=== PATIENT | male | born 1935 | race Caucasian/White ===

== ENCOUNTER 2021-11-10 06:52 | Observation (INO) | payer MEDICARE ==
[2021-11-10 08:05] LABS: Basophils % (A) 0 %; Eosinophils # (A) 0.1 k/uL (0-0.7); Eosinophils % (A) 1 %; HGB 15.8 gm/dL (13.0-17.5); Lymphocytes % (A) 18 %; MCH 29.9 pg (25.0-35.0); MCV 90.5 fL (80.0-100.0); Monocytes # (A) 0.8 k/uL (0-1.0); Monocytes % (A) 7 %; Neutrophils # (A) 7.7 k/uL (1.3-7.7); Neutrophils % (A) 71 %; Platelet Count 343 k/uL (150-450); RDW 13.3 % (11.5-15.5); WBC 10.9 k/uL (3.8-10.6)
[2021-11-10 08:11] LABS: Partial Thromboplastin Time 24.7 sec (22.0-30.0); Prothrombin Time 11.1 sec (9.0-12.0)
[2021-11-10 08:16] LABS: Albumin 4.3 g/dL (3.5-5.0); Calcium 9.1 mg/dL (8.4-10.2); Potassium 3.6 mmol/L (3.5-5.1); Total Bilirubin 1.1 mg/dL (0.2-1.3); Total Protein 7.5 g/dL (6.3-8.2)
--- NOTE | 2021-11-10 08:18 | XR ---
EXAMINATION TYPE: XR chest 2V DATE OF EXAM: 11/10/2021 COMPARISON: NONE HISTORY: Difficulty breathing TECHNIQUE: Frontal and lateral views of the chest are obtained. FINDINGS: The patient is rotated. There are overlying leads. Patchy basilar density noted. There is retrocardiac lucency consistent with hiatal hernia. Aorta is dense. Heart size is within normal limit s. Prominent lung volume may be indicative of underlying COPD. Thoracic spondylosis is present. There is a compression fracture midthoracic spine with loss of height of approximately 50-75%, additional fracture also shows loss of height of approximately 50%. No evident pneumothorax or pleural effusion. IMPRESSION: Probable hiatal hernia with partial intrathoracic stomach. There may be underlying basil ar atelectasis, difficult to exclude early pneumonia versus scarring. Compression fractures thoracic spine of indeterminate age.
[2021-11-10] MEDS ORDERED: IPRATROPIUM-ALBUTEROL 3 ML NEB INHALATION STA (09:00)
[2021-11-10] MEDS ORDERED: methylPREDNISolone SOD SUCCI 125 MG/2 ML VIAL IV STA (09:00)
[2021-11-10] MEDS ORDERED: cefTRIAXone IN SWFI 1,000 MG/10 ML SYRINGE IVP STA (09:00)
--- NOTE | 2021-11-10 09:03 | ED ---
SOB HPI - General Chief Complaint: Shortness of Breath Stated Complaint: Shortness of breath Time Seen by Provider: 11/10/21 07:05 Source: patient, EMS Mode of arrival: EMS Limitations: no limitations - History of Present Illness Initial Comments: Patient is an 86-year-old male past medical history of hypertension presents the emergency room with shortness of breath. States that it started yesterday. Patient cannot ambulate across a room or lay flat without being short of breath. Also reports to a productive cough with white sputum. Admits to dry throat and feeling weak overall. Denies previous history of cardiac or pulmonary disease. No previous issues with his breathing prior to yesterday. Admits to a murmur since he was young. Denies any current chest pain. No fevers. No sick contacts. No other alleviating, precipitating modifying factors - Related Data Home Medications Medication Instructions Recorded Confirmed Ascorbic Acid [Vitamin C] 1,000 mg PO DAILY@82911/10/21 11/10/21 Aspirin EC [Ecotrin Low Dose] 81 mg PO DAILY@82911/10/21 11/10/21 Cholecalciferol [Vitamin D3 (25 25 mcg PO DAILY@82911/10/21 11/10/21 Mcg = 1000 Iu)] Metoprolol Tartrate [Lopressor] 50 mg PO BID@0800,199911/10/21 11/10/21 Multivit-Min/FA/Lycopen/Lutein 1 tab PO DAILY@82911/10/21 11/10/21 [Centrum Silver Tablet] [place]-3 Fatty Acids/Fish Oil [Fish 1 cap PO DAILY@82911/10/21 11/10/21 Oil 1,000 mg Softgel] Vitamin E 400 unit PO DAILY@82911/10/21 11/10/21 hydroCHLOROthiazide [Hydrodiuril] 25 mg PO DAILY@1200 11/10/21 11/10/21 Allergies Allergy/AdvReac Type Severity Reaction Status Date / Time No Known Allergies Allergy Verified 11/10/21 08:35 Review of Systems ROS Statement: Those systems with pertinent positive or pertinent negative responses have been documented in the HPI. ROS Other: All systems not noted in ROS Statement are negative. Past Medical History Past Medical History: Hypertension History of Any Multi-Drug Resistant Organisms: None Reported Past Surgical History: No Surgical Hx Reported Past Psychological History: No Psychological Hx Reported Smoking Status: Former smoker Past Alcohol Use History: None Reported Past Drug Use History: None Reported - Past Family History Father Additional Family Medical History / Comment(s): at 92 from old age, no heart problems Mother Additional Family Medical History / Comment(s): from a car accident General Exam Limitations: no limitations General appearance: alert, in no apparent distress Head exam: Present: atraumatic, normocephalic, normal inspection Eye exam: Present: normal appearance, PERRL, EOMI. Absent: scleral icterus, conjunctival injection, periorbital swelling ENT exam: Present: normal exam, mucous membranes moist Neck exam: Present: normal inspection. Absent: tenderness, meningismus, lymphadenopathy Respiratory exam: Present: accessory muscle use, decreased breath sounds. Absent: respiratory distress, wheezes, rales, rhonchi, stridor Cardiovascular Exam: Present: normal rhythm, tachycardia, systolic murmur. Absent: diastolic murmur, rubs, gallop, clicks GI/Abdominal exam: Present: soft, normal bowel sounds. Absent: distended, tenderness, guarding, rebound, rigid Extremities exam: Present: normal inspection, full ROM, normal capillary refill. Absent: tenderness, pedal edema, joint swelling, calf tenderness Back exam: Present: normal inspection Neurological exam: Present: alert, oriented X3, CN II-XII intact Psychiatric exam: Present: normal affect, normal mood Skin exam: Present: warm, dry, intact, normal color. Absent: rash Course Vital Signs 11/10/21 11/10/21 11/10/21 06:55 09:19 09:32 Temperature 97.9 F Pulse Rate 97 100 95 Pulse Rate [ Pulse Oximetery ] Respiratory 22 16 Rate Blood Pressure 141/102 120/84 Blood Pressure [Right Arm Sitting] O2 Sat by Pulse 97 97 Oximetry 11/10/21 11/10/21 11/10/21 09:40 11:10 12:50 Temperature Pulse Rate 96 77 76 Pulse Rate [ Pulse Oximetery ] Respiratory 16 16 Rate Blood Pressure 128/88 123/73 Blood Pressure [Right Arm Sitting] O2 Sat by Pulse 96 95 Oximetry 11/10/21 14:00 Temperature 97.9 F Pulse Rate Pulse Rate [ 83 Pulse Oximetery ] Respiratory 17 Rate Blood Pressure Blood Pressure 153/82 [Right Arm Sitting] O2 Sat by Pulse 98 Oximetry Medical Decision Making - Medical Decision Making Vital patient is placed into room 6. A thorough history and physical exam was performed. Patient is tachycardic with a heart rate between 105 and 1:15. He has labored breathing with any type of movement in bed. He is placed on 2 L of oxygen. Laboratory studies are conducted and reviewed. Covid and influenza are negative. Chest x-rays performed which demonstrates a hiatal hernia, intrathoracic stomach and basilar atelectasis which is difficult to exclude early pneumonia. As the patient is having productive cough I did put him on Rocephin and azithromycin. Recommended admission for echo. Spoke with Dr. Mcallister who agreed to admit the patient - Lab Data Result diagrams: 11/11/21 06:54 11/11/21 06:54 Lab Results 11/10/21 11/10/21 11/10/21 Range/Units 07:33 07:33 07:33 WBC 10.9 H (3.8-10.6) k/uL RBC 5.30 (4.30-5.90) m/uL Hgb 15.8 (13.0-17.5) gm/dL Hct 48.0 (39.0-53.0) % MCV 90.5 (80.0-100.0) fL MCH 29.9 (25.0-35.0) pg MCHC 33.0 (31.0-37.0) g/dL RDW 13.3 (11.5-15.5) % Plt Count 343 (150-450) k/uL MPV 8.0 Neutrophils % 71 % Lymphocytes % 18 % Monocytes % 7 % Eosinophils % 1 % Basophils % 0 % Neutrophils # 7.7 (1.3-7.7) k/uL Lymphocytes # 2.0 (1.0-4.8) k/uL Monocytes # 0.8 (0-1.0) k/uL Eosinophils # 0.1 (0-0.7) k/uL Basophils # 0.0 (0-0.2) k/uL PT 11.1 (9.0-12.0) sec INR 1.0 (<1.2) APTT 24.7 (22.0-30.0) sec D-Dimer 0.53 (<0.60) mg/L FEU Sodium (137-145) mmol/L Potassium (3.5-5.1) mmol/L Chloride (98-107) mmol/L Carbon Dioxide (22-30) mmol/L Anion Gap mmol/L BUN (9-20) mg/dL Creatinine (0.66-1.25) mg/dL Est GFR (CKD-EPI)AfAm (>60 ml/min/1.73 sqM) Est GFR (CKD-EPI)NonAf (>60 ml/min/1.73 sqM) Glucose (74-99) mg/dL Plasma Lactic Acid Vipul (0.7-2.0) mmol/L Calcium (8.4-10.2) mg/dL Total Bilirubin (0.2-1.3) mg/dL AST (17-59) U/L ALT (4-49) U/L Alkaline Phosphatase (38-126) U/L Troponin I (0.000-0.034) ng/mL NT-Pro-B Natriuret Pep pg/mL Total Protein (6.3-8.2) g/dL Albumin (3.5-5.0) g/dL Coronavirus (PCR) Not Detected (Not Detectd) Influenza Type A RNA (Not Detectd) Influenza Type B (PCR) (Not Detectd) 11/10/21 11/10/21 11/10/21 Range/Units 07:33 07:33 07:33 WBC (3.8-10.6) k/uL RBC (4.30-5.90) m/uL Hgb (13.0-17.5) gm/dL Hct (39.0-53.0) % MCV (80.0-100.0) fL MCH (25.0-35.0) pg MCHC (31.0-37.0) g/dL RDW (11.5-15.5) % Plt Count (150-450) k/uL MPV Neutrophils % % Lymphocytes % % Monocytes % % Eosinophils % % Basophils % % Neutrophils # (1.3-7.7) k/uL Lymphocytes # (1.0-4.8) k/uL Monocytes # (0-1.0) k/uL Eosinophils # (0-0.7) k/uL Basophils # (0-0.2) k/uL PT (9.0-12.0) sec INR (<1.2) APTT (22.0-30.0) sec D-Dimer (<0.60) mg/L FEU Sodium 141 (137-145) mmol/L Potassium 3.6 (3.5-5.1) mmol/L Chloride 104 (98-107) mmol/L Carbon Dioxide 24 (22-30) mmol/L Anion Gap 13 mmol/L BUN 34 H (9-20) mg/dL Creatinine 1.08 (0.66-1.25) mg/dL Est GFR (CKD-EPI)AfAm 70 (>60 ml/min/1.73 sqM) Est GFR (CKD-EPI)NonAf 61 (>60 ml/min/1.73 sqM) Glucose 126 H (74-99) mg/dL Plasma Lactic Acid Vipul 2.0 (0.7-2.0) mmol/L Calcium 9.1 (8.4-10.2) mg/dL Total Bilirubin 1.1 (0.2-1.3) mg/dL AST 45 (17-59) U/L ALT 27 (4-49) U/L Alkaline Phosphatase 61 (38-126) U/L Troponin I <0.012 (0.000-0.034) ng/mL NT-Pro-B Natriuret Pep pg/mL Total Protein 7.5 (6.3-8.2) g/dL Albumin 4.3 (3.5-5.0) g/dL Coronavirus (PCR) (Not Detectd) Influenza Type A RNA (Not Detectd) Influenza Type B (PCR) (Not Detectd) 11/10/21 11/10/21 Range/Units 07:33 08:10 WBC (3.8-10.6) k/uL RBC (4.30-5.90) m/uL Hgb (13.0-17.5) gm/dL Hct (39.0-53.0) % MCV (80.0-100.0) fL MCH (25.0-35.0) pg MCHC (31.0-37.0) g/dL RDW (11.5-15.5) % Plt Count (150-450) k/uL MPV Neutrophils % % Lymphocytes % % Monocytes % % Eosinophils % % Basophils % % Neutrophils # (1.3-7.7) k/uL Lymphocytes # (1.0-4.8) k/uL Monocytes # (0-1.0) k/uL Eosinophils # (0-0.7) k/uL Basophils # (0-0.2) k/uL PT (9.0-12.0) sec INR (<1.2) APTT (22.0-30.0) sec D-Dimer (<0.60) mg/L FEU Sodium (137-145) mmol/L Potassium (3.5-5.1) mmol/L Chloride (98-107) mmol/L Carbon Dioxide (22-30) mmol/L Anion Gap mmol/L BUN (9-20) mg/dL Creatinine (0.66-1.25) mg/dL Est GFR (CKD-EPI)AfAm (>60 ml/min/1.73 sqM) Est GFR (CKD-EPI)NonAf (>60 ml/min/1.73 sqM) Glucose (74-99) mg/dL Plasma Lactic Acid Vipul (0.7-2.0) mmol/L Calcium (8.4-10.2) mg/dL Total Bilirubin (0.2-1.3) mg/dL AST (17-59) U/L ALT (4-49) U/L Alkaline Phosphatase (38-126) U/L Troponin I (0.000-0.034) ng/mL NT-Pro-B Natriuret Pep 64 pg/mL Total Protein (6.3-8.2) g/dL Albumin (3.5-5.0) g/dL Coronavirus (PCR) (Not Detectd) Influenza Type A RNA Not Detected (Not Detectd) Influenza Type B (PCR) Not Detected (Not Detectd) - EKG Data EKG Comments: EKG demonstrates sinus rhythm with a rate of 97. MT interval 180. QRS 130. QTC of 418. Right bundle branch block. No acute ST segment elevations or depressions Disposition Clinical Impression: Acute respiratory insufficiency, Cough Disposition: ADMITTED IP TO THIS HOSP Is patient prescribed a controlled substance at d/c from ED?: No Time of Disposition: 09:34 Decision to Admit Reason: Admit from EC Decision Date: 11/10/21 Decision Time: 09:34
[2021-11-10] MEDS ORDERED: NALOXONE 0.4 MG/ML 1 ML VIAL IV PRN (09:34)
[2021-11-10] MEDS ORDERED: SODIUM CHLORIDE 0.9% 1,000 ML IV SCH (09:45)
--- NOTE | 2021-11-10 13:11 | CA ---
Transthoracic Echo Report Name: Vicetne Yang Age: 86 Gender: M : 1935 Exam Date: 11/10/2021 10:58 Exam Location: [facility] Ht (in): 66 Wt (lb): 165 Ordering Physician: Belinda Livingston DO Attending/Referring Phys: [id number], [facility] [employer] [facility] [employer] Manager Breanna [place], [place] Procedure CPT: Indications: respiratory insuff, murmur Cardiac Hx: Hx of murmur Technical Quality: Good Contrast 1: Total Dose (mL): Contrast 2: Total Dose (mL): MEASUREMENTS (Male / Female) Normal Values 2D ECHO LV Diastolic Diameter PLAX 3.1 cm 4.2 - 5.9 / 3.9 - 5.3 cm LV Systolic Diameter PLAX 1.9 cm IVS Diastolic Thickness 1.1 cm 0.6 - 1.0 / 0.6 - 0.9 cm LVPW Diastolic Thickness 1.2 cm 0.6 - 1.0 / 0.6 - 0.9 cm LV Relative Wall Thickness 0.7 LVOT Diameter 1.5 cm M-MODE MV E Point Septal Separation 1.1 cm DOPPLER AV Peak Velocity 215.5 cm/s AV Peak Gradient 18.6 mmHg AV Mean Velocity 128.2 cm/s AV Mean Gradient 8.1 mmHg AV Velocity Time Integral 37.3 cm AI Peak Velocity 184.0 cm/s AI Peak Gradient 13.5 mmHg AI Pressure Half Time 457.8 ms LVOT Peak Velocity 106.2 cm/s LVOT Peak Gradient 4.5 mmHg AV Area Cont Eq pk 0.9 cm??? MV Area PHT 4.4 cm??? MR Peak Velocity 104.2 cm/s MR Peak Gradient 4.3 mmHg Mitral E Point Velocity 122.0 cm/s Mitral A Point Velocity 147.4 cm/s Mitral E to A Ratio 0.8 MV Deceleration Time 170.8 ms TR Peak Velocity 174.3 cm/s TR Peak Gradient 12.1 mmHg Right Ventricular Systolic Press 16.7 mmHg FINDINGS Left Ventricle Normal Left ventricular size, wall thickness, systolic function with no obvious regional wall motion abnormalities. Left ventricular ejection fraction is estimated at 55-60 %. Right Ventricle The right ventricle is normal in size and function. Right Atrium The right atrium is normal in size. Left Atrium The left atrium is normal in size. Mitral Valve Structurally normal mitral valve without significant stenosis or prolapse. There is mild mitral regurgitation. Aortic Valve Mild aortic stenosis with a peak gradient of 19 mmHg and a mean gradient of 8 mmHg. . There is a trace of aortic regurgitation. RICHARD of .9cm2 by continuity equation likely related to underestimation of LVOT. Tricuspid Valve Structurally normal tricuspid valve without significant stenosis. Pulmonary artery systolic pressure is normal. Mild tricuspid regurgitation. Pulmonic Valve Structurally normal pulmonic valve without significant stenosis. There is no pulmonic regurgitation. Pericardium Normal pericardium without effusion. Aorta Normal aortic root dimension. CONCLUSIONS Normal left ventricular function with ejection fraction 55-60% Normal left ventricular thickness Mild aortic stenosis with mean gradient of 8 mmHg Trace aortic regurgitation Mild mitral regurgitation Previewed by: Dr. Barrett Aparicio DO (Electronically Signed) Final Date: 10 Nov 2021 13:10
[2021-11-10] MEDS: hydroCHLOROthiazide 25 MG TAB PO SCH (13:12)
[2021-11-10] MEDS ORDERED: NALOXONE 0.4 MG/ML 1 ML VIAL IVP PRN (16:07)
[2021-11-10] MEDS ORDERED: MELATONIN 3 MG TABLET PO PRN (16:07)
[2021-11-10] MEDS ORDERED: ONDANSETRON 4 MG/2 ML VIAL IVP PRN (16:07)
--- NOTE | 2021-11-10 16:10 | P.HPIM ---
History of Present Illness H&P Date: 11/10/21 Chief Complaint: dyspnea Patient is an 86-year-old male with a history of remote tobacco abuse quit in 1963 and hypertension who presented to the ER for shortness of breath. On arrival to the ER his vital signs were within normal limits. Laboratory analysis shows hemoglobin of 10.9, BUN 34, glucose 126, COVID and influenza testing were negative. Chest x-ray showed possible hiatal hernia with intrathoracic stomach. Compression fractures of thoracic spine age indetermin ate. He was treated with Solu-Medrol and 1 dose of DuoNeb. He was admitted for further monitoring. He underwent an echocardiogram which showed preserved ejection fraction of 50-55%. His first treatment troponins were negative. Patient seen and examined at bedside. He reports that he was in his usual state of health up until yesterday. He sat outside in the sun for 3 hours at a parade in [facility]. He then became short of breath when walking home. He reports that he can only go about half of his normal distance and then felt very lightheaded, faint, and short of breath. He denies any associated chest pain, nausea, lightheaded, or diaphoresis. He has not recently started or stopped any m edications. He follows with his primary care regularly. He has not missed any medications. He denies any history of asthma or COPD. He quit smoking in 1963. He had noticed increasing kyphosis recently. Pertinent positives and negatives as discussed in HPI, a complete review of systems was performed and all other systems are negative. General: non toxic, no distress, appears at stated age Derm: warm, dry Head: atraumatic, normocephalic, symmetric Eyes: EOMI, no lid lag, anicteric sclera, pupils equal round reactive to light ENT: Nose and ears atraumatic, no thrush, no pharyngeal erythema Neck: No thyromegaly, no cervical lymphadenopathy, trachea midline, supple Mouth: no lip lesion, mucus membranes moist Cardiovascular: S1S2 reg, no murmur, positive posterior tibial pulse bilateral, no edema, capillary refill less than 2 seconds Lungs: clear to ascultation bilateral, no ronchi, no rales, no wheeze, no accessory muscle use Abdominal: soft, nontender to palpation, no guarding, no appreciable organomegaly, normal bowel sounds Ext: no gross muscle atrophy, muscle strength muscle strength 5 out of 5 in all 4 extremities, no contractures Neuro: CN II-XI grossly intact, light touch intact all 4 extremities, finger to nose within normal limits, Psych: Alert, oriented, appropriate affect Assessment/plan: Dyspnea -No history of asthma or COPD. Concern for possible anginal for violent. -Continue with telemetry -Troponin negative -Echo unremarkable -Consult cardiology -Continue with aspirin - d-dimer negative Hypertension, controlled -Continue with home or to her thiazide and metoprolol -Follow blood pressures The patient is placed in observation with an anticipated less than 2 midnight stay for evaluation of Dyspnea. CODE STATUS: DNR DVT prophylaxis: SCD Discussed with: Patient, nursing Anticipated discharge date: in AM Anticipated discharge place: home A total of 65 minutes was spent on the care of this complex patient more than 50% of the time was spent in counseling and care coordination. Past Medical History Past Medical History: Hypertension History of Any Multi-Drug Resistant Organisms: None Reported Past Surgical History: Tonsillectomy Past Psychological History: No Psychological Hx Reported Smoking Status: Former smoker (quit in 1967) Past Alcohol Use History: None Reported Past Drug Use History: None Reported Additional History: no cane or walker - Past Family History Father Additional Family Medical History / Comment(s): at 92 from old age, no heart problems Mother Additional Family Medical History / Comment(s): from a car accident Medications and Allergies Home Medications Medication Instructions Recorded Confirmed Type Ascorbic Acid [Vitamin C] 1,000 mg PO DAILY@82911/10/21 11/10/21 History Aspirin EC [Ecotrin Low Dose] 81 mg PO DAILY@82911/10/21 11/10/21 History Cholecalciferol [Vitamin D3 (25 25 mcg PO DAILY@82911/10/21 11/10/21 History Mcg = 1000 Iu)] Metoprolol Tartrate [Lopressor] 50 mg PO BID@11/10/21 11/10/21 History Multivit-Min/FA/Lycopen/Lutein 1 tab PO DAILY@82911/10/21 11/10/21 History [Centrum Silver Tablet] [place]-3 Fatty Acids/Fish Oil [Fish 1 cap PO DAILY@82911/10/21 11/10/21 History Oil 1,000 mg Softgel] Vitamin E 400 unit PO DAILY@82911/10/2111/10/22 History hydroCHLOROthiazide [Hydrodiuril] 25 mg PO DAILY@1200 11/10/21 11/10/21 History Allergies Allergy/AdvReac Type Severity Reaction Status Date / Time No Known Allergies Allergy Verified 11/10/21 08:35 Physical Exam Osteopathic Statement: *. No significant issues noted on an osteopathic structural exam other than those noted in the History and Physical/Consult. Vitals: Vital Signs Temp Pulse Pulse Resp BP BP Pulse Ox 11/10/21 14:00 97.9 F 83 17 153/82 98 11/10/21 12:50 76 16 123/73 95 11/10/21 11:10 77 16 128/88 96 11/10/21 09:40 96 11/10/21 09:32 95 11/10/21 09:19 100 16 120/84 97 11/10/21 06:55 97.9 F 97 22 141/102 97 Intake and Output 11/10/21 11/10/21 11/10/21 06:59 14:59 22:59 Other: # Voids 0 Weight 75 kg 75 kg Results CBC & Chem 7: 11/10/21 07:33 11/10/21 07:33 Labs: Abnormal Lab Results - Last 24 Hours (Table) 11/10/21 11/10/21 Range/Units 07:33 07:33 WBC 10.9 H (3.8-10.6) k/uL BUN 34 H (9-20) mg/dL Glucose 126 H (74-99) mg/dL
[2021-11-10] MEDS: PANTOPRAZOLE 40 MG TABLET PO SCH (17:14)
[2021-11-10] MEDS: METOPROLOL TARTRATE 50 MG TAB PO SCH (21:06)
[2021-11-11 07:34] VITALS: RESP 16; TEMP 97.5
--- NOTE | 2021-11-11 08:26 | P.CRDCN ---
History of Present Illness History of present illness: HISTORY OF PRESENTING ILLNESS Patient is a pleasant 86-year-old male with history of remote tobacco abuse quit in 1963, hypertension, mild aortic stenosis who presents mainly secondary to his food not tasting well. There is report of dyspnea on exertion however per patient he actually has been having shortness breath with exertion for the last 3-4 years. He states sometimes at his facility people tell him he walks slow however he is okay with his pays. Usually he will walk a block or 2 and then stop and watch the traffic and then started up again. He denies any significant change. He denies any chest pain or pressure or diaphoresis with exertion. He denies any prior cardiac workup. He states mainly he had been eating his food and it did not taste well and is also somewhat dry and apparently talked to his daughter and his daughter had called EMS for patient to be brought to the emergency department and be checked out. Patient states he did not actually want to come in and now his appetite has improved. There is some contradictory report from H&P about patient stating he cannot walk as much as he could previously. Workup showed white blood cell count 10.9, hemoglobin 15.8, d-dimer 0.5, creatinine 1.0, troponin normal 3, proBNP 64. EKG showed normal sinus rhythm with right bundle branch block with nonspecific ST depressions. Echocardiogram shows normal EF 55-60% mild aortic stenosis and mild mitral regurgitation. REVIEW OF SYSTEMS At the time of my exam: CONSTITUTIONAL: Denies fever or chills. CARDIOVASCULAR: Denies chest pain, +shortness of breath, no orthopnea, PND or palpitations. RESPIRATORY: Denies cough. GASTROINTESTINAL: Denies abdominal pain, diarrhea, constipation, nausea or vomiting. MUSCULOSKELETAL: Denies myalgias. NEUROLOGIC: Denies numbness, tingling or weakness. ENDOCRINE: Denies fatigue, weight change, polydipsia or polyurina. GENITOURINARY: Denies burning, hematuria or urgency with micturation. HEMATOLOGIC: Denies history of anemia or bleeding. PHYSICAL EXAMINATION Vital signs reviewed. CONSTITUTIONAL: No apparent distress. HEENT: Head is normocephalic. Pupils are equal, round. Sclerae anicteric. Mucous membranes of the mouth are moist. No JVD. No carotid bruit. CHEST EXAMINATION: Lungs are clear to auscultation. No chest wall tenderness is noted on palpation or with deep breathing. HEART EXAMINATION: Regular rate and rhythm. S1, S2 heard. No murmurs, gallops or rub. ABDOMEN: Soft, nontender. Positive bowel sounds. EXTREMITIES: 2+ peripheral pulses, no lower extremity edema and no calf tenderness. NEUROLOGIC EXAMINATION: Patient is awake, alert and oriented x3. ASSESSMENT 1. Dyspnea on exertion, stable for the last few years per patient 2. Hypertension 3. Right bundle branch block 4. Mild aortic stenosis 5. Previous tobacco abuse quit in 1963 PLAN Patient stating his symptoms have actually been fairly stable in terms of his shortness breath. May be some contradictory reports with apparent decrease in exercise tolerance per H&P however he states his shortness breath has not changed his main reason for coming in was dry mouth and his food not tasting well. He states he is back at his baseline. Discussed possible recommendations for Lexiscan stress test however patient does not currently want workup. Dyspnea on exertion may be his anginal equivalent however continue with metoprolol. Symptoms have been stable and stable for discharge home on current regimen. Follow-up in the office in one week. Past Medical History Past Medical History: Hypertension History of Any Multi-Drug Resistant Organisms: None Reported Past Surgical History: Tonsillectomy Past Psychological History: No Psychological Hx Reported Smoking Status: Former smoker (quit in 1967) Past Alcohol Use History: None Reported Past Drug Use History: None Reported - Past Family History Father Additional Family Medical History / Comment(s): at 92 from old age, no heart problems Mother Additional Family Medical History / Comment(s): from a car accident Medications and Allergies Home Medications Medication Instructions Recorded Confirmed Type Ascorbic Acid [Vitamin C] 1,000 mg PO DAILY@82911/10/21 11/10/21 History Aspirin EC [Ecotrin Low Dose] 81 mg PO DAILY@82911/10/21 11/10/21 History Cholecalciferol [Vitamin D3 (25 25 mcg PO DAILY@82911/10/21 11/10/21 History Mcg = 1000 Iu)] Metoprolol Tartrate [Lopressor] 50 mg PO BID@799,199911/10/21 11/10/21 History Multivit-Min/FA/Lycopen/Lutein 1 tab PO DAILY@82911/10/21 11/10/21 History [Centrum Silver Tablet] [place]-3 Fatty Acids/Fish Oil [Fish 1 cap PO DAILY@0830 11/10/21 11/10/21 History Oil 1,000 mg Softgel] Vitamin E 400 unit PO DAILY@0830 11/10/21 11/10/21 History hydroCHLOROthiazide [Hydrodiuril] 25 mg PO DAILY@1200 11/10/21 11/10/21 History Allergies Allergy/AdvReac Type Severity Reaction Status Date / Time No Known Allergies Allergy Verified 11/10/21 08:35 Physical Exam Vitals: Vital Signs Temp Pulse Pulse Resp BP BP BP 11/11/21 07:00 97.5 F L 50 L 16 130/72 11/11/21 01:16 98.1 F 74 17 129/76 11/10/21 19:17 97.9 F 98 16 121/64 11/10/21 18:14 11/10/21 14:00 97.9 F 83 17 153/82 11/10/21 12:50 76 16 123/73 11/10/21 11:10 77 16 128/88 11/10/21 09:40 96 11/10/21 09:32 95 11/10/21 09:19 100 16 120/84 Pulse Ox 11/11/21 07:00 95 11/11/21 01:16 96 11/10/21 19:17 95 11/10/21 18:14 95 11/10/21 14:00 98 11/10/21 12:50 95 11/10/21 11:10 96 11/10/21 09:40 11/10/21 09:32 11/10/21 09:19 97 Intake and Output 11/10/21 11/11/21 11/11/21 22:59 06:59 14:59 Intake Total 236 Output Total 175 Balance 61 Intake: Oral 236 Output: Urine 175 Other: # Voids 1 1 Results 11/10/21 07:33 11/10/21 07:33 Cardiac Enzymes 11/10/21 11/10/21 11/10/21 Range/Units 07:33 10:58 16:10 Troponin I <0.012 <0.012 <0.012 (0.000-0.034) ng/mL Current Medications Generic Name Dose Route Start Last Admin Trade Name Freq PRN Reason Stop Dose Admin Aspirin 81 mg 11/11/21 08:30 Aspirin 81 Mg PO DAILY@0830 [facility] Hydrochlorothiazide 25 mg 11/10/21 12:00 11/10/21 13:12 Hydrochlorothiazide 25 Mg Tab PO 25 mg DAILY@1200 [facility] Administration Melatonin 3 mg 11/10/21 16:07 Melatonin 3 Mg Tablet PO HS PRN Insomnia Metoprolol Tartrate 50 mg 11/10/21 20:00 11/10/21 21:06 Metoprolol Tartrate 50 Mg Tab PO 50 mg BID@0800,2000 [facility] Administration Naloxone HCl 0.2 mg 11/10/21 09:34 Naloxone 0.4 Mg/Ml 1 Ml Vial IV Q2M PRN Opioid Reversal Naloxone HCl 0.2 mg 11/10/21 16:07 Naloxone 0.4 Mg/Ml 1 Ml Vial IVP Q2M PRN Opioid Reversal Ondansetron HCl 4 mg 11/10/21 16:07 Ondansetron 4 Mg/2 Ml Vial IVP Q8HR PRN Nausea And Vomiting Pantoprazole Sodium 40 mg 11/10/21 16:15 11/10/21 17:14 Pantoprazole 40 Mg Tablet PO 40 mg [id number] [facility] Administration Intake and Output 11/10/21 11/11/21 11/11/21 22:59 06:59 14:59 Intake Total 236 Output Total 175 Balance 61 Intake: Oral 236 Output: Urine 175 Other: # Voids 1 1 11/10/21 07:33 11/10/21 07:33
[2021-11-11] MEDS ORDERED: MULTIVITAMINS, THERA 1 EACH TAB PO SCH (08:30)
[2021-11-11] MEDS ORDERED: NON FORMULARY DRUG (Omega-3 Fatty Acids/Fish Oil [Fish Oil 1,000 Mg Softgel] 1 EACH Capsul PO SCH (08:30)
[2021-11-11] MEDS ORDERED: VITAMIN E (DL,TOCOPHERYL ACET) 400 UNIT (180 MG) CAP PO SCH (08:30)
[2021-11-11] MEDS ORDERED: ASCORBIC ACID 500 MG TAB PO SCH (08:30)
[2021-11-11] MEDS ORDERED: ASPIRIN 81 MG PO SCH (08:30)
[2021-11-11] MEDS: PANTOPRAZOLE 40 MG TABLET PO SCH (08:57)
[2021-11-11] MEDS: METOPROLOL TARTRATE 50 MG TAB PO SCH (08:57)
[2021-11-11 10:27] LABS: Basophils # (A) 0.03 X 10*3/uL (0.00-0.10); Basophils % (A) 0.2 %; Eosinophils # (A) 0 X 10*3/uL (0.04-0.35); Eosinophils % (A) 0 %; HCT 47.2 % (39.6-50.0); HGB 14.9 g/dL (13.0-17.0); Immature Grans, Automated 0.4 %; Lymphocytes # (A) 2.72 X 10*3/uL (0.90-5.00); Lymphocytes % (A) 21.4 %; MCH 28.3 pg (27.0-32.0); MCHC 31.6 g/dL (32.0-37.0); MCV 89.7 fL (80.0-97.0); Mean Platelet Volume 10.9 fL (9.5-12.2); Monocytes # (A) 1.17 X 10*3/uL (0.20-1.00); Monocytes % (A) 9.2 %; NRBC Per 100 WBC 0 /100 WBCS (0.0-0.0); Neutrophils # (A) 8.73 X 10*3/uL (1.80-7.70); Neutrophils % (A) 68.8 %; Platelet Count 357 X 10*3/uL (140-440); RBC 5.26 X 10*6/uL (4.40-5.60); RDW 14.1 % (11.5-14.5)
[2021-11-11 10:59] LABS: Anion Gap 14.5 mmol/L (10.00-18.00); BUN/Creat Ratio 34.21 Ratio (12.00-20.00); Blood Urea Nitrogen 33.7 mg/dL (9.0-27.0); Calcium 9.5 mg/dL (8.7-10.3); Carbon Dioxide 25.6 mmol/L (20.0-27.5); Non-African American GFR(CKD) 68.1 (60.0-200.0)
[2021-11-11 11:00] LABS: Chol/HDL Ratio 4.13 Ratio; LDL Cholesterol,Calculated 123.3 mg/dL (0.0-131.0)
[2021-11-11] MEDS: hydroCHLOROthiazide 25 MG TAB PO SCH (12:22)
[2021-11-11 12:27] VITALS: BP 152/78; PULSE 58
--- NOTE | 2021-11-11 12:37 | P.DS ---
Providers Date of admission: 11/10/21 09:34 Expected date of discharge: 11/11/21 Attending physician: Karla Pierce DO Consults: 11/10/21 16:07 Consult Physician Routine Consulting Provider: [facility] Consult Reason/Comments: Chest Pain Do you want consulting provider notified?: Yes Primary care physician: Leena [facility] [place] Course: History of Present Illness H&P Date: 11/10/21 Chief Complaint: dyspnea Patient is an 86-year-old male with a history of remote tobacco abuse quit in 1963 and hypertension who presented to the ER for shortness of breath. On arrival to the ER his vital signs were within normal limits. Laboratory analysis shows hemoglobin of 10.9, BUN 34, glucose 126, COVID and influenza testing were negative. Chest x-ray showed possible hiatal hernia with intrathoracic stomach. Compression fractures of thoracic spine age indeterminate. He was treated with Solu-Medrol and 1 dose of DuoNeb. He was admitted for further monitoring. He underwent an echocardiogram which showed preserved ejection fraction of 50-55%. His first treatment troponins were negative. Patient seen and examined at bedside. He reports that he was in his usual state of health up until yesterday. He sat outside in the sun for 3 hours at a parade in [facility]. He then became short of breath when walking home. He reports that he can only go about half of his normal distance and then felt very lightheaded, faint, and short of breath. He denies any associated chest pain, nausea, lightheaded, or diaphoresis. He has not recently started or stopped any medications. He follows with his primary care regularly. He has not missed any medications. He denies any history of asthma or COPD. He quit smoking in 1963. He had noticed increasing kyphosis recently. Pertinent positives and negatives as discussed in HPI, a complete review of systems was performed and all other systems are negative. Physical examination on discharge: General: non toxic, no distress, appears at stated age Derm: warm, dry Head: atraumatic, normocephalic, symmetric Eyes: EOMI, no lid lag, anicteric sclera, pupils equal round reactive to light ENT: Nose and ears atraumatic, no thrush, no pharyngeal erythema Neck: No thyromegaly, no cervical lymphadenopathy, trachea midline, supple Mouth: no lip lesion, mucus membranes moist Cardiovascular: S1S2 reg, no murmur, positive posterior tibial pulse bilateral, no edema, capillary refill less than 2 seconds Lungs: clear to ascultation bilateral, no ronchi, no rales, no wheeze, no accessory muscle use Abdominal: soft, nontender to palpation, no guarding, no appreciable organomegaly, normal bowel sounds Ext: no gross muscle atrophy, muscle strength muscle strength 5 out of 5 in all 4 extremities, no contractures Neuro: CN II-XI grossly intact, light touch intact all 4 extremities, finger to nose within normal limits, Psych: Alert, oriented, appropriate affect Detailed the problem list: #Exertional dyspnea -Unclear etiology -Acute coronary syndrome is ruled out. Negative troponin. -Normal proBNP -Negative d-dimer -Patient has remote history of smoking. he'll benefit from outpatient PFTs and pulmonary evaluation -X-ray unremarkable -2-D echo showed EF 55-60% with pyloric stenosis -Cardiology evaluated the patient and recommended outpatient stress test -Patient vitals has been stable without any evidence of hypoxia -COVID 19 has been ruled out by rapid test -Influenza A and B has been ruled out -Cardiac cleared the patient for discharge Hypertension, controlled -Continue with home or to her thiazide and metoprolol -Follow blood pressures Plan - Discharge Summary Discharge Rx Participant: No New Discharge Prescriptions: Continue Ascorbic Acid [Vitamin C] 1,000 mg PO DAILY@0830 Cholecalciferol [Vitamin D3 (25 Mcg = 1000 Iu)] 25 mcg PO DAILY@0830 Metoprolol Tartrate [Lopressor] 50 mg PO BID@0800,2000 Multivit-Min/FA/Lycopen/Lutein [Centrum Silver Tablet] 1 tab PO DAILY@0830 Aspirin EC [Ecotrin Low Dose] 81 mg PO DAILY@829 hydroCHLOROthiazide [Hydrodiuril] 25 mg PO DAILY@1200 [place]-3 Fatty Acids/Fish Oil [Fish Oil 1,000 mg Softgel] 1 cap PO DAILY@0830 Vitamin E 400 unit PO DAILY@30 Discharge Medication List Ascorbic Acid [Vitamin C] 1,000 mg PO DAILY@82911/10/21 [History] Aspirin EC [Ecotrin Low Dose] 81 mg PO DAILY@82911/10/21 [History] Cholecalciferol [Vitamin D3 (25 Mcg = 1000 Iu)] 25 mcg PO DAILY@82911/10/21 [History] Metoprolol Tartrate [Lopressor] 50 mg PO BID@0800,199911/10/21 [History] Multivit-Min/FA/Lycopen/Lutein [Centrum Silver Tablet] 1 tab PO DAILY@82911/10/21 [History] [place]-3 Fatty Acids/Fish Oil [Fish Oil 1,000 mg Softgel] 1 cap PO DAILY@82911/10/21 [History] Vitamin E 400 unit PO DAILY@82911/10/21 [History] hydroCHLOROthiazide [Hydrodiuril] 25 mg PO DAILY@119911/10/21 [History] Follow up Appointment(s)/Referral(s): Barrett Aparicio DO [STAFF PHYSICIAN] - 1 Week Leena Valdovinos DO [Primary Care Provider] - 1-2 days Discharge Disposition: HOME SELF-CARE
== END 2021-11-11 17:15 | disposition home or self-care (01) ==
LOC: EC 06:52 → 6NMEDSUR 09:34
PROVIDERS: ADMIT Internal Medicine; ATTEND Internal Medicine
DX: R06.09 Other forms of dyspnea (principal); I45.10 Unspecified right bundle-branch block; I10 Essential (primary) hypertension; J98.11 Atelectasis; M48.54XA Collapsed vertebra, not elsewhere classified, thoracic region, initial encounter for fracture; R00.0 Tachycardia, unspecified; K44.9 Diaphragmatic hernia without obstruction or gangrene; M40.209 Unspecified kyphosis, site unspecified; I08.3 Combined rheumatic disorders of mitral, aortic and tricuspid valves; Z20.822 Contact with and (suspected) exposure to COVID-19; Z79.82 Long term (current) use of aspirin; Z79.899 Other long term (current) drug therapy; Z87.891 Personal history of nicotine dependence; Z66 Do not resuscitate
CPT/HCPCS: 96361; 96374; 96375; 99285; 36415; 94640; 93005; 93306; 85379; 83880; 80061; 80053; 80048; 83605; 84484; 85025 ×2; 85610; 85730; 87502; 87635; 71046; G0378 ×2; J2930; J0696

== ENCOUNTER → 2021-12-08 | Outpatient (CLI) | payer MEDICARE ==
[~2021-12-08] MED LIST: REGADENOSON 0.4 MG/5 ML SYRINGE IV ONE
--- NOTE | 2021-12-08 11:33 | NM ---
EXAMINATION TYPE: NM stress lexiscan cardiolite DATE OF EXAM: 12/08/2021 COMPARISON: NONE HISTORY: Chest pain TECHNIQUE: After the intravenous administration of 9.3 mCi Tc 99m Sestamibi - Cardiolite resting SPE CT images acquired 45 minutes post injection. The patient received 0.4mg Lexiscan, 25.1 mCi Tc 99m Sestamibi - Stress images obtained [address] injection FINDINGS: Review of stress and rest SPECT images demonstrates no distinct perfusion abnormality. Gated analysi s shows normal wall motion with an estimated left ventricular ejection fraction of 79 %. IMPRESSION: No scintigraphic evidence for reversible ischemia.
--- NOTE | 2021-12-09 10:43 | EST ---
EXERCISE STRESS INDICATION: Shortness of breath. AGE: 86 SEX: M HT: 5'4" WT: PROTOCOL: Lexiscan STAGE: DURATION OF EXERCISE: HEART RATE REST: 69 BLOOD PRESSURE REST: 158/83 MAXIMUM HEART RATE ACHIEVED: 99 MAXIMUM BLOOD PRESSURE: 158/83 85% MPHR: 112 100% MPHR: 132 METS: RESULTS: Baseline EKG shows sinus rhythm, normal axis, normal intervals. Patient was given intravenous Lexiscan as per protocol. Did not have chest pain or diagnostic ST-segment depression. CONCLUSIONS: 1. Negative stress test by EKG criteria. 2. Cardiolite portion of the stress test will be reported separately. MMODL / IJN: [id number] /
== END | disposition home or self-care (01) ==
LOC: RADNMMAIN 08:05
PROVIDERS: ATTEND Family Medicine
DX: R07.89 Other chest pain (principal)
CPT/HCPCS: 93017; 78452; A9500